=== PATIENT | female | born 1940 | race African-American/Black ===

== ENCOUNTER 2020-09-09 16:35 | Emergency (ER) | payer MEDICARE, OTHER ==
[~2020-09-09] VITALS: Ht 160 cm; Wt 91.8 kg
[2020-09-09 16:38] VITALS: BP 167/76
[2020-09-09] MEDS ORDERED: OMEP20 PO (16:53)
[2020-09-09] MEDS ORDERED: SIMV-260 PO (16:53)
[2020-09-09] MEDS ORDERED: AMLO2.5T96 PO (16:53)
[2020-09-09] MEDS ORDERED: POTA20TA83 PO ×2 (16:53→16:54)
[2020-09-09] MEDS ORDERED: CALC-789 PO (16:53)
[2020-09-09] MEDS ORDERED: ASPI-1227 PO (16:53)
[2020-09-09] MEDS ORDERED: HYDR25TA2 PO (16:53)
[2020-09-09] MEDS ORDERED: IBUPROFEN 600 MG TABLET PO ONE (17:45)
[2020-09-09] MEDS ORDERED: SILVER SULFADIAZINE 1% 25 GM CREAM TP ONE (17:45)
[2020-09-09] MEDS ORDERED: ATEN-73 PO (17:46)
[2020-09-09] MEDS ORDERED: AMLO-257 PO (17:46)
[2020-09-09] MEDS ORDERED: LOSA100T58 PO (17:46)
== END 2020-09-09 18:37 | disposition home or self-care (01) ==
LOC: EMS 16:35
DX: T25.121A Burn of first degree of right foot, initial encounter (principal); I10 Essential (primary) hypertension; E78.00 Pure hypercholesterolemia, unspecified; X12.XXXA Contact with other hot fluids, initial encounter; Y93.89 Activity, other specified; Y92.89 Other specified places as the place of occurrence of the external cause; Y99.8 Other external cause status
CPT/HCPCS: 16020; 99282; Z7502; Z7610